=== PATIENT | female | born 1960 | race Caucasian/White ===

== ENCOUNTER → 2016-12-25 | Outpatient (CLI) | payer BC ==
--- NOTE | 2016-12-25 14:56 | DIAGNOSTIC IMAGING REPORT ---
(BARIUM SWALLOW) ESOPHAGUS CLINICAL HISTORY: ODYNOPHAGIA COMPARISON STUDY: None. FLUOROSCOPY TIME: 2.2 minutes.. FINDINGS: 23 fluoroscopic spot images. The contours of the hypopharynx are within normal limits. Normal esophageal motility. Small hiatus hernia. Irregularity at the gastroesophageal junction likely due to prior Ed fundoplication no gastroesophageal reflux. The barium tablet remained at the gastroesophageal junction. There is moderate narrowing at the gastroesophageal junction.. IMPRESSION: Moderate narrowing at the gastroesophageal junction which is likely due to the prior Ed fundoplication. No gastroesophageal reflux. Electronically signed by: Ti Gastelum M.D. 12/25/2016 2:55 PM Dictated Date/Time: 12/25/2016 2:20 PM
== END | disposition home or self-care (01) ==
LOC: C.RAD 13:34
PROVIDERS: ATTEND Internal Medicine Gastroenterology
DX: R13.10 Dysphagia, unspecified (principal)